=== PATIENT | female | born 1975 | race Caucasian/White ===

== ENCOUNTER → 2017-05-19 | Outpatient (CLI) | payer OTHER ==
--- NOTE | 2017-05-20 10:49 | MM ---
Reason for exam: screening (asymptomatic). Last mammogram was performed 1 year and 3 months ago. History: Patient is nulliparous. Family history of breast cancer in maternal aunt at age 60. Benign excisional biopsy of the left breast, 2011. Benign excisional biopsy of the left breast, 2004. Took hormonal contraceptives for 5 years beginning at age 18. Physical Findings: A clinical breast exam by your physician is recommended on an annual basis and results should be correlated with mammographic findings. MG 3D Screening Mammo W/Cad Bilateral CC and MLO view(s) were taken. Prior study comparison: February 26, 2016, bilateral MG 3d screening mammo w/cad. February 19, 2015, right breast MG 3d work up w/cad RT. The breast tissue is heterogeneously dense. This may lower the sensitivity of mammography. No suspicious abnormality in the left breast. Despite stability of the right upper outer quadrant architectural distortion, work up is required as other high risk lesions such as underlying radial scar could be present. Ensure no history of right breast surgery. ASSESSMENT: Incomplete: need additional imaging evaluation, BI-RAD 0 RECOMMENDATION: Special view mammogram of the right breast. If lesion persists on supplemental views, image directed ultrasound is recommended. [facility] will attempt to contact patient to return for supplemental views and ultrasound if indicated.
== END | disposition home or self-care (01) ==
LOC: RADMAMWWP 07:09
PROVIDERS: ATTEND Obstetrics & Gynecology
DX: Z12.31 Encounter for screening mammogram for malignant neoplasm of breast (principal)
CPT/HCPCS: 77063; 77067

== ENCOUNTER → 2017-05-27 | Outpatient (CLI) | payer OTHER ==
--- NOTE | 2017-05-30 08:03 | MM ---
Reason for exam: additional evaluation requested from abnormal screening. Last mammogram was performed less than 1 month ago. History: Patient is nulliparous. Family history of breast cancer in maternal aunt at age 60. Benign excisional biopsy of the left breast, 2011. Benign excisional biopsy of the left breast, 2004. Took hormonal contraceptives for 5 years beginning at age 18. Physical Findings: Nurse Summary: 1 x 1cm nodule in the right breast at 11 o'clock (nurse ts). MG 3D Work Up W/Cad RT Spot compression CC, spot compression MLO, MLO, and ML view(s) were taken of the right breast. Prior study comparison: May 19, 2017, bilateral MG 3d screening mammo w/cad. February 26, 2016, bilateral MG 3d screening mammo w/cad. Spiculated density seen dating back to 2010. These results were verbally communicated with the patient and result sheet given to the patient on 05/27/17. ASSESSMENT: Incomplete: need additional imaging evaluation, BI-RAD 0 RECOMMENDATION: Ultrasound of the right breast.
--- NOTE | 2017-05-30 08:05 | USB ---
Reason for exam: additional evaluation requested from abnormal screening. History: Patient is nulliparous. Family history of breast cancer in maternal aunt at age 60. Benign excisional biopsy of the left breast, 2011. Benign excisional biopsy of the left breast, 2004. Took hormonal contraceptives for 5 years beginning at age 18. US Breast Workup Limited RT Right breast ultrasound demonstrates a 0.9 x 0.6 x 1.0cm hypoechoic lesion at 9 o'clock and a 0.7 x 0.4 x 0.6cm cystic lesion at 10 o'clock. These results were verbally communicated with the patient and result sheet given to the patient on 05/27/17. ASSESSMENT: Suspicious, BI-RAD 4 RECOMMENDATION: Ultrasound core biopsy of the right breast. Called Dr. Eaton with mammographic findings and has scheduled an appointment for the patient for 06/30/17 at 8:[address] Gomez. Biopsy scheduled for 06/06/17 at 2:00. PRELIMINARY REPORT CALLED AND FAXED TO DR. GOMEZ ON 05/30/17.
== END ==
LOC: RADMAMWWP 13:29
PROVIDERS: ATTEND Obstetrics & Gynecology
DX: R92.8 Other abnormal and inconclusive findings on diagnostic imaging of breast (principal)
CPT/HCPCS: 77065; 76642; G0279

== ENCOUNTER → 2017-06-06 | Day surgery (SDC) | payer OTHER ==
[2017-06-06 13:31] VITALS: RESP 16; TEMP 98; BMI 29.6
--- NOTE | 2017-06-06 14:57 | USB ---
EXAMINATION TYPE: US biopsy breast VAD RT, MG diagnostic mammo RT wo CAD DATE OF EXAM: 06/06/2017 CLINICAL HISTORY: R92.8 ABN Mammogram. TECHNIQUE: Ultrasound guided core biopsy of right 9:00 breast. COMPARISON: 05/27/2017 ultrasound and mammography FINDINGS: The procedure of ultrasound guided core biopsy was explained to the patient. Benefits, alternatives, and risks were discussed. An informed consent was then obtained. The patient was placed in supine positioning for imaging and for the procedure. The overlying skin was prepped and draped in usual sterile fashion. Lidocaine buffered with bicarbonate was used as anesthetic into the skin and subcutaneous tissue up to area of concern in the right 9:00 breast. A jose was made with surgical scalpel. Under ultrasound guidance, a 12-gauge vacuum assisted biopsy gun device was used to obtain 5 core samples. Following this, a biopsy clip was left in lesion. There is evidence of clip migration. If biopsy results are benign or negative I do recommend needle localization with open biopsy. The patient tolerated the procedure well without any immediate complication. The patient was kept in the radiology department for short stay after the procedure and then discharged home in stable condition. IMPRESSION: Successful, uncomplicated ultrasound guided core biopsy of area of concern in the right 9:00 breast, full pathology results to follow. There is evidence of clip migration. If biopsy results are benign or negative I do recommend needle localization with open biopsy. Pathology Results: Benign BREAST, RIGHT, CORE BIOPSY: FIBROCYSTIC CHANGES INCLUDING SCLEROSING ADENOSIS WITH RARE MICROCALCIFICATIONS, FIBROSIS AND CYSTS. Recommendation Follow up ultrasound of the right breast in 6 months. ADITI
[2017-06-06 15:40] VITALS: BP 109/72; PULSE 66
== END ==
LOC: RADUSWWP 13:08
PROVIDERS: ATTEND Surgery
DX: N60.21 Fibroadenosis of right breast (principal); R92.0 Mammographic microcalcification found on diagnostic imaging of breast; N60.31 Fibrosclerosis of right breast
CPT/HCPCS: 77065; 19083; A4648; J2001; 88305

== ENCOUNTER 2017-07-01 06:43 | Day surgery (SDC) | payer OTHER ==
[2017-06-28 14:00] VITALS: BMI 30.4
[~2017-07-01 06:43] MED LIST: DEXAMETHASONE SOD PHOSPHATE 10 MG/ML 1 ML VIAL IV ONE; HEPARIN SODIUM,PORCINE 5,000 UNIT/ML 1 ML VIAL SQ ONE; LACTATED RINGERS 1,000 ML IV SCH; LIDOCAINE 1% 20 ML VIAL (10MG/ML) FOR IV START INTRADERMA PRN; MIDAZOLAM 2 MG/2 ML VIAL IV PRN; Pre Op ABX Message 1 EACH MISC MISCELLANE ONE; SCOPOLAMINE 1.5MG/72HR PATCH TRANSDERM ONE; fentaNYL (PF) 50 MCG/ML 2 ML AMP IV PRN
[2017-07-01 07:21] LABS: Glucose,Whole Blood 87 mg/dL (75-99)
[2017-07-01] MEDS ORDERED: ALPRAZolam 0.5 MG TAB PO ONE (07:23)
[2017-07-01] MEDS ORDERED: LIDOCAINE 1% INJ 10MG/ML (20 ML MDV) SQ ONE (08:14)
[2017-07-01] MEDS ORDERED: SODIUM BICARB 4% 5 ML VIAL (0.48 MEQ/ML) MISCELLANE ONE (08:14)
[2017-07-01] MEDS ORDERED: BUPIVACAINE (PF) 0.25% 30 ML VIAL SQ ONE (09:12)
[2017-07-01] MEDS ORDERED: ONDANSETRON ODT 4 MG TAB PO ONE (09:15)
[2017-07-01] MEDS ORDERED: fentaNYL (PF) 50 MCG/ML 2 ML AMP ONE (09:17)
[2017-07-01] MEDS ORDERED: PROPOFOL 10 MG/ML 20 ML VIAL IV ONE (09:17)
[2017-07-01] MEDS ORDERED: MIDAZOLAM 2 MG/2 ML VIAL ONE (09:17)
[2017-07-01] MEDS ORDERED: LIDOCAINE 1% INJ 10MG/ML (20 ML MDV) ONE (09:17)
[2017-07-01] MEDS ORDERED: traMADol 50 MG TAB PO PRN (10:04)
[2017-07-01] MEDS ORDERED: NALOXONE 0.4 MG/ML 1 ML VIAL IV PRN (10:04)
--- NOTE | 2017-07-01 10:07 | P.OP ---
Date of Procedure: 07/01/17 Procedure(s) Performed: PREOPERATIVE DIAGNOSIS: Abnormal right mammogram POSTOPERATIVE DIAGNOSIS: Same PROCEDURE: Right Breast wire localization biopsy SURGEON: Kathy EBL: Minimal ANESTHESIA: Sedation plus local COMPLICATIONS: None OPERATIVE PROCEDURE: Patient was placed on the operating room table in the supine position. The patient's breast was prepped and draped in usual sterile fashion. A curvilinear incision was made adjacent to the area areola. The subcutaneous tissues were dissected until we met up with the wire. I followed the wire down into the breast tissue. The breast tissue around the tip of the wire was fully excised using electrocautery. An additional small piece was taken just beyond the tip of the wire. The specimen was sent for specimen radiogram. The abnormality was present within the specimen. The subcutaneous tissues were inspected. No bleeding was seen. The subcutaneous tissues were closed using 3-0 Vicryl sutures. The skin was closed using a running 4-0 Monocryl stitch. Steri-Strips and sterile dressings were applied. DISPOSITION: Stable to recovery room
[2017-07-01 10:29] VITALS: TEMP 97
[2017-07-01] MEDS ORDERED: LACTATED RINGERS 1,000 ML IV ONE (10:39)
--- NOTE | 2017-07-01 11:18 | MM ---
EXAMINATION TYPE: MG pre op needle loc RT, MG surgical specimen RT DATE OF EXAM: 07/01/2017 9:07 AM COMPARISON: 06/06/2017 HISTORY: Recent ultrasound biopsy right breast with clip migration noted. Recommended excision of a site of distortion. Informed consent was obtained and all the patient's questions were answered. The density in question was localized mammographically. The standard sterile technique was utilized, as well as appropriate local anesthesia with 1% Lidocaine and bicarbonate. Localization needle followed by placement of a guidewire was performed under mammographic guidance. Verification images demonstrate appropriate deployment of the guidewire. The patient tolerated the procedure well and left the department in stable condition. Specimen radiograph demonstrates the density and guidewire to reside within the specimen. IMPRESSION: Successful needle localization and open biopsy right breast with pathology results pending . Pathology Results: High Risk RIGHT BREAST NEEDLE LOCALIZATION LUMPECTOMY: FOCAL ATYPICAL DUCTAL HYPERPLASIA. FIBROCYSTIC CHANGES WITH USUAL TYPE DUCT HYPERPLASIA, SCLEROSING ADENOSIS. Recommendation Follow up mammogram of the right breast in 6 months. ADITI
[2017-07-01 12:32] VITALS: BP 118/75; PULSE 68; RESP 16
== END 2017-07-01 12:45 | disposition home or self-care (01) ==
LOC: OR 06:43
PROVIDERS: ATTEND Surgery
DX: N60.91 Unspecified benign mammary dysplasia of right breast (principal); N60.11 Diffuse cystic mastopathy of right breast; N60.21 Fibroadenosis of right breast; Z80.3 Family history of malignant neoplasm of breast; K21.9 Gastro-esophageal reflux disease without esophagitis; F32.9 Major depressive disorder, single episode, unspecified; Z88.5 Allergy status to narcotic agent; Z79.899 Other long term (current) drug therapy; Z79.3 Long term (current) use of hormonal contraceptives
CPT/HCPCS: 81025; 88342; 88307; 76098; 19281; 19125; J2250; J1644; J1100; J2001; J3010; J2704

== ENCOUNTER → 2017-11-21 | Outpatient (CLI) | payer OTHER ==
--- NOTE | 2017-11-21 09:53 | MM ---
Reason for exam: follow-up at short interval from prior study. Last mammogram was performed 5 months ago. History: Patient has history of high-risk lesion on a previous biopsy at age 41 and is nulliparous. Family history of breast cancer in maternal aunt at age 60. High risk MG pre op needle loc RT of the right breast, July 01, 2017. Benign US biopsy breast VAD RT of the right breast, June 06, 2017. Benign excisional biopsy of the left breast, 2011. Benign excisional biopsy of the left breast, 2004. Took hormonal contraceptives for 5 years beginning at age 18. Physical Findings: Nurse did not find any significant physical abnormalities on exam. MG 3D Diag Mammo W/Cad RT CC and MLO view(s) were taken of the right breast. Prior study comparison: June 06, 2017, right breast MG diagnostic mammo RT wo CAD. May 27, 2017, right breast MG 3d work up w/cad RT. The breast tissue is heterogeneously dense. This may lower the sensitivity of mammography. Finding: There is a more prominent architectural distortion in the upper outer quadrant of the right breast consistent with known distortion and new distortion relates to internal excision. Previous mammotome biopsy in the right breast. There is no dominant lesion. These results were verbally communicated with the patient and result sheet given to the patient on 11/21/17. ASSESSMENT: Probably benign, BI-RAD 3 RECOMMENDATION: Follow-up diagnostic mammogram of both breasts in 6 months. Back on schedule.
== END | disposition home or self-care (01) ==
LOC: RADMAMWWP 08:43
PROVIDERS: ATTEND Surgery
DX: R92.8 Other abnormal and inconclusive findings on diagnostic imaging of breast (principal)
CPT/HCPCS: 77061; 77065

== ENCOUNTER 2018-07-22 10:29 | Inpatient (IN) | payer BC ==
[2018-07-22 11:02] LABS: Basophils % (A) 0 %; Eosinophils # (A) 0.2 k/uL (0-0.7); Eosinophils % (A) 3 %; HCT 38.8 % (34.0-46.0); HGB 13.3 gm/dL (11.4-16.0); Lymphocytes # (A) 1.8 k/uL (1.0-4.8); Lymphocytes % (A) 23 %; MCH 30.5 pg (25.0-35.0); MCHC 34.4 g/dL (31.0-37.0); MCV 88.8 fL (80.0-100.0); Mean Platelet Volume 6.5; Monocytes # (A) 0.3 k/uL (0-1.0); Monocytes % (A) 4 %; Neutrophils # (A) 5.3 k/uL (1.3-7.7); Neutrophils % (A) 68 %; Platelet Count 320 k/uL (150-450); RBC 4.37 m/uL (3.80-5.40); WBC 7.7 k/uL (3.8-10.6)
--- NOTE | 2018-07-22 11:02 | ED ---
Neuro HPI - General Chief Complaint: Neuro Symptoms/Deficit Stated Complaint: VISUAL DISTURBANCE, LISTING TO RIGHT Time Seen by Provider: 07/22/18 10:38 Source: patient Mode of arrival: ambulatory Limitations: no limitations - History of Present Illness Is the patient presenting with stroke symptoms?: Yes Last Known Well Date: 07/22/18 Last Known Well Time: 08:59 Onset/Timin -: hour(s) Initial Comments: Radha is a previously healthy 43-year-old female who presents to the emergency department today for evaluation of acute onset of double vision, gait instability and facial droop. Patient reports that approximately an hour and a half prior to arrival she developed double vision which she describes as seeing one image on top of the other. Double vision results if she keeps one eye closed. Patient also feels that she's having gait instability, she reports feeling on Tuesday on her feet and repeatedly falls to the right. Patient denies any headache, nausea, vomiting. The symptoms began suddenly and unprovoked. They've been persistent with no relieving factors. Patient has no history of hypertension, she was recently tested for cholesterol and was told she had mildly elevated lipids, no history of liver disease. - Related Data Home Medications: Home Medications Medication Instructions Recorded Confirmed Escitalopram [Lexapro] 20 mg PO DAILY 05/30/17 07/22/18 Fluticasone Nasal [place] [Flonase 1 spray EA NOSTRIL DAILY 07/22/18 07/22/18 Nasal [place]] Britt 24 Fe 1mg-20mcg Tablet 1 tab PO DAILY 07/22/18 07/22/18 Montelukast Sodium [Singulair] 10 mg PO DAILY 07/22/18 07/22/18 metFORMIN HCL [Glucophage] 500 mg PO BID 07/22/18 07/22/18 Allergies/Adverse Reactions: Allergies Allergy/AdvReac Type Severity Reaction Status Date / Time codeine Allergy Severe Anaphylaxis-DIFFICULTY Verified 07/22/18 10:59 BREATHING, ABD PAIN Review of Systems ROS Statement: Those systems with pertinent positive or pertinent negative responses have been documented in the HPI. ROS Other: All systems not noted in ROS Statement are negative. General Exam - General Exam Comments Initial Comments: GENERAL: Patient is well-developed and well-nourished. Patient is nontoxic and well-hydrated HENT: Normocephalic, Atraumatic. Neck is soft and supple. No significant lymphadenopathy is noted. Oropharynx is clear. Moist mucous membranes. Neck has full range of motion without eliciting any pain. EYES: The sclera were anicteric and conjunctiva were pink and moist. pupils were equal round and reactive to light. Decreased ability to elevate eyes to look superiorly bilaterally Eyelids were unremarkable. PULMONARY: Unlabored respirations Good breath sounds bilaterally No audible rales rhonchi or wheezing was noted CARDIOVASCULAR: There is a regular rate and rhythm without any murmurs gallops or rubs. ABDOMEN: Soft and nontender with normal bowel sounds. SKIN: Skin is clear with no lesions or rashes and otherwise unremarkable. NEUROLOGIC: Patient is alert and oriented x3. Cranial nerves II through XII are grossly intact. There may be mild right sided mouth droop, however difficult to assess because patient is holding left eye closed causing asymmetry of the face Motor and sensory are also intact. Normal speech, volume and content. Symmetrical smile. MUSCULOSKELETAL: Normal extremities with adequate strength and full range of motion. No lower extremity swelling or edema. No calf tenderness. LYMPHATICS: No significant lymphadenopathy is noted PSYCHIATRIC: Normal psychiatric evaluation Limitations: no limitations Stroke MDM - Lab Data Result diagrams: 07/22/18 10:17 07/22/18 10:17 Lab Results 07/22/18 07/22/18 07/22/18 Range/Units 10:17 10:17 10:17 WBC 7.7 (3.8-10.6) k/uL RBC 4.37 (3.80-5.40) m/uL Hgb 13.3 (11.4-16.0) gm/dL Hct 38.8 (34.0-46.0) % MCV 88.8 (80.0-100.0) fL MCH 30.5 (25.0-35.0) pg MCHC 34.4 (31.0-37.0) g/dL RDW 13.0 (11.5-15.5) % Plt Count 320 (150-450) k/uL Neutrophils % 68 % Lymphocytes % 23 % Monocytes % 4 % Eosinophils % 3 % Basophils % 0 % Neutrophils # 5.3 (1.3-7.7) k/uL Lymphocytes # 1.8 (1.0-4.8) k/uL Monocytes # 0.3 (0-1.0) k/uL Eosinophils # 0.2 (0-0.7) k/uL Basophils # 0.0 (0-0.2) k/uL PT 9.7 (9.0-12.0) sec INR 0.9 (<1.2) APTT 23.9 (22.0-30.0) sec Sodium 139 (137-145) mmol/L Potassium 4.2 (3.5-5.1) mmol/L Chloride 107 (98-107) mmol/L Carbon Dioxide 24 (22-30) mmol/L Anion Gap 8 mmol/L BUN 10 (7-17) mg/dL Creatinine 0.73 (0.52-1.04) mg/dL Est GFR (CKD-EPI)AfAm >90 (>60 ml/min/1.73 sqM) Est GFR (CKD-EPI)NonAf >90 (>60 ml/min/1.73 sqM) Glucose 98 (74-99) mg/dL POC Glucose (mg/dL) (75-99) mg/dL POC Glu Editorial Writer ID Calcium 9.9 (8.4-10.2) mg/dL Total Bilirubin 0.4 (0.2-1.3) mg/dL AST 14 (14-36) U/L ALT 11 (9-52) U/L Alkaline Phosphatase 89 (38-126) U/L Troponin I (0.000-0.034) ng/mL Total Protein 7.1 (6.3-8.2) g/dL Albumin 4.0 (3.5-5.0) g/dL 07/22/18 07/22/18 Range/Units 10:17 11:12 WBC (3.8-10.6) k/uL RBC (3.80-5.40) m/uL Hgb (11.4-16.0) gm/dL Hct (34.0-46.0) % MCV (80.0-100.0) fL MCH (25.0-35.0) pg MCHC (31.0-37.0) g/dL RDW (11.5-15.5) % Plt Count (150-450) k/uL Neutrophils % % Lymphocytes % % Monocytes % % Eosinophils % % Basophils % % Neutrophils # (1.3-7.7) k/uL Lymphocytes # (1.0-4.8) k/uL Monocytes # (0-1.0) k/uL Eosinophils # (0-0.7) k/uL Basophils # (0-0.2) k/uL PT (9.0-12.0) sec INR (<1.2) APTT (22.0-30.0) sec Sodium (137-145) mmol/L Potassium (3.5-5.1) mmol/L Chloride (98-107) mmol/L Carbon Dioxide (22-30) mmol/L Anion Gap mmol/L BUN (7-17) mg/dL Creatinine (0.52-1.04) mg/dL Est GFR (CKD-EPI)AfAm (>60 ml/min/1.73 sqM) Est GFR (CKD-EPI)NonAf (>60 ml/min/1.73 sqM) Glucose (74-99) mg/dL POC Glucose (mg/dL) 94 (75-99) mg/dL POC Glu Editorial Writer ID Sherry Cervantes Calcium (8.4-10.2) mg/dL Total Bilirubin (0.2-1.3) mg/dL AST (14-36) U/L ALT (9-52) U/L Alkaline Phosphatase (38-126) U/L Troponin I <0.012 (0.000-0.034) ng/mL Total Protein (6.3-8.2) g/dL Albumin (3.5-5.0) g/dL - NIH Stroke Scale 1a. Level of Consciousness: (0) alert 1b. LOC Questions: (0) answers correctly 1c. LOC Commands: (0) performs tasks correctly 2. Best Gaze: (1) partial gaze palsy 3. Visual: (0) no visual loss 4. Facial Palsy: (1) minor paralysis 5a. Motor Arm Left: (0) no drift 5b. Motor Arm Right: (0) no drift 6a. Motor Leg Left: (0) no drift 6b. Motor Leg Right: (0) no drift 7. Limb Ataxia: (0) absent 8. Sensory: (0) normal 9. Best Language: (0) no aphasia 10. Dysarthria: (0) normal 11. Extinction/Inattention: (0) no abnormality - Medical Decision Making Patient was seen and evaluated immediately upon arrival to the emergency department 43-year-old female no significant past medical history with acute onset of double vision and gait instability concerning for brain stem stroke CODE STROKE was activated CT of the head with no acute findings Patient care was discussed with neuro interventionalists Dr. Rachelle jean baptiste who recommended aspirin, admission, MRI and supportive care Labs with no abnormalities Patient sleeping comfortably in the exam room. Patient care was discussed with of the [facility] hospitalist group who is covering for Dr. León who admits for Dr. Fritz. - EKG Data -: EKG Interpreted by Ar EKG shows normal: sinus rhythm Rate: normal EKG was obtained at 11:38 AM, rate is 72 rhythm is sinus is normal axis her normal intervals, NC 160, QRS 74, QTC 34, QTC 420 there are no acute ST elevations or depressions no evidence of acute ischemia or infarction or arrhythmia. 07/22/18 12:04 Past Medical History Past Medical History: GERD/Reflux Additional Past Medical History / Comment(s): abnormal mammogram. History of Any Multi-Drug Resistant Organisms: None Reported Additional Past Surgical History / Comment(s): 2011 left breast biopsy, benign. Left Axilla biopsy 2004 benign. bilat Lasik eye surgery 2010, Right Breast Bx 06/16/17. Past Anesthesia/Blood Transfusion Reactions: No Reported Reaction Past Psychological History: No Psychological Hx Reported Smoking Status: Never smoker Past Alcohol Use History: Rare Past Drug Use History: None Reported - Past Family History Father Family Medical History: Deep Vein Thrombosis (DVT), Pulmonary Embolus Course Vital Signs 07/22/18 07/22/18 07/22/18 10:32 11:00 11:15 Temperature 97.9 F Pulse Rate 93 70 73 Respiratory 16 14 14 Rate Blood Pressure 136/90 142/94 128/86 O2 Sat by Pulse 97 98 99 Oximetry 07/22/18 07/22/18 11:30 11:45 Temperature Pulse Rate 71 67 Respiratory 16 16 Rate Blood Pressure 123/85 125/82 O2 Sat by Pulse 99 98 Oximetry Critical Care Time Critical Care Time: Yes Total Critical Care Time: 30 Disposition Clinical Impression: Cerebrovascular accident, Double vision with both eyes open, Gait instability Disposition: ADMITTED IP TO THIS [facility] Condition: Stable Is patient prescribed a controlled substance at d/c from ED?: No Referrals: Neri Fritz MD [Primary Care Provider] - 1-2 days
[2018-07-22] MEDS ORDERED: ASPIRIN 81 MG PO STA (11:06)
[2018-07-22 11:12] LABS: ALT 11 U/L (9-52); AST 14 U/L (14-36); Alkaline Phosphatase 89 U/L (38-126); Anion Gap 8 mmol/L; Blood Urea Nitrogen 10 mg/dL (7-17); Calcium 9.9 mg/dL (8.4-10.2); Carbon Dioxide 24 mmol/L (22-30); Chloride 107 mmol/L (98-107); Glucose 98 mg/dL (74-99); Potassium 4.2 mmol/L (3.5-5.1); Sodium 139 mmol/L (137-145); Total Bilirubin 0.4 mg/dL (0.2-1.3); Total Protein 7.1 g/dL (6.3-8.2)
[2018-07-22 11:13] LABS: INR 0.9 (<1.2); Partial Thromboplastin Time 23.9 sec (22.0-30.0); Prothrombin Time 9.7 sec (9.0-12.0)
--- NOTE | 2018-07-22 11:15 | CT ---
EXAMINATION TYPE: CT brain wo con for TPA DATE OF EXAM: 07/22/2018 COMPARISON: None INDICATION: Visiual disturbance, listing to right DLP: 1172.8 mGycm, Automated exposure control for dose reduction was used. CONTRAST: None CT of the brain is performed utilizing 3 mm thick sections through the posterior fossa and 3 mm thick sections through the remaining calvarium. Study is performed within 24 hours of arrival to the hosp [place]. No abnormal hyperdensity is present to suggest an acute intracranial hemorrhage. No mass lesion is evident. No acute infarcts are evident. Ventricles and sulci are appropriate for the patient age. Paranasal sinuses and mastoid air cells within the [id number] are clear. IMPRESSIONS: 1. No acute intracranial process. If symptoms persists, MRI could be utilized.
[2018-07-22 11:17] LABS: Glucose,Whole Blood 94 mg/dL (75-99)
--- NOTE | 2018-07-22 12:12 | CT ---
EXAMINATION TYPE: CODE STROKE: CTA head neck DATE OF EXAM: 07/22/2018 HISTORY: Stroke like symptoms right facial droop with headache and blurred vision COMPARISON: None CT DLP: 527 mGycm. Automated Exposure Control for Dose Reduction was Utilized. TECHNIQUE: CTA scan of the neck is performed with IV Contrast, patient injected with 50 mL of Isovue 370, axial images are obtained, coronal and sagittal reformatted images are reviewed. Three-D recons tructed images are created on an independent workstation and reviewed. FINDINGS: Carotid/Vascular Structures: There is a three-vessel arch. Vertebral arteries are codominant. No sign ificant stenosis of the common carotid artery, internal or external carotid artery origins on the lef t is evident. The right common carotid artery and internal and external carotid artery origins appear normal. Distal internal carotid arteries are patent to the level of the skull base. [place]: Vertebral basilar system is normal. Posterior cerebral vasculature is normal. Poste rior right communicating artery appears to be patent. There may be a posterior left communicating art vladimir present. Anterior communicating artery is not identified. The internal carotid arteries bifurcat e normally into A1 and M1 segments. The A2 segments appear normal. Middle cerebral artery branches ar e normal. No suspicious abrupt cut off is evident. Other: Portion of the thyroid visualized is normal. Vocal cord level appear symmetrical. Lung apices are clear. IMPRESSION: 1. No suspicious carotid artery stenosis. 2. Normal [place]
[2018-07-22] MEDS ORDERED: NALOXONE 0.4 MG/ML 1 ML VIAL IV PRN (12:43)
[2018-07-22 13:25] LABS: Appearance,Urine Clear (Clear); Bilirubin,Urine Negative (Negative); Blood,Urine Small (Negative); Color,Urine Light Yellow; Glucose,Urine (UA) Negative (Negative); Ketones,Urine Negative (Negative); Leukocyte Esterase,Urine Negative (Negative); Mucus,Urine Rare /hpf; Nitrite,Urine Negative (Negative); PH, Urine 5.5 (5.0-8.0); Protein,Urine Negative (Negative); RBC,Urine 2 /hpf (0-5); Squamous Epithelial Cell,Urine 4 /hpf (0-4); Urobilinogen,Urine <2.0 mg/dL (<2.0); WBC,Urine <1 /hpf (0-5)
[2018-07-22 13:30] LABS: Specific Gravity,Urine >1.050 (1.001-1.035)
[2018-07-22 14:28] LABS: Amphetamine Screen,Urine Not Detected (NotDetected); Barbiturate Screen,Urine Not Detected (NotDetected); Benzodiazepines Screen,Urine Not Detected (NotDetected); Cocaine Screen,Urine Not Detected (NotDetected); Methadone Screen, Urine Not Detected (NotDetected); Opiate Screen,Urine Not Detected (NotDetected); Oxycodone Screen, Urine Not Detected (NotDetected); Phencyclidine Screen,Urine Not Detected (NotDetected); Tricyclic Antidepressant,Urine Not Detected (NotDetected); Urn Cannabinoid Scrn Not Detected (NotDetected)
[2018-07-22 16:10] VITALS: RESP 20; TEMP 97.8; BMI 31.9
--- NOTE | 2018-07-22 16:42 | P.CNNES ---
History of Present Illness Consult date: 07/22/18 Reason for Consult: CVA History of Present Illness: Patient is a 43-year-old right-handed female, who woke up this morning at 9 AM with difficulty focusing, diplopia, right facial droop, gait imbalance and tendency to fall to the right. There was no numbness tingling or focal weakness of the extremities. No nausea vomiting or vertigo. No slurred speech significant headache. Patient states that she went to bed last night at 11 PM in usual state of health. She did woke up one time in the middle of the night and was fine, but then she finally woke up at 9 AM had all the symptoms. Patient denies any recent head trauma. Patient denies history of hypertension, diabetes, tobacco use. Denies any family history of multiple sclerosis or cerebral aneurysms. Patient does not take any antiplatelet medications. She does take control pills for the last 2 years. Patient underwent computed tomography scan of the head, which was normal. CTA of head and neck showed no suspicious carotid artery stenosis. Normal [place]. EKG showed normal sinus rhythm. Stroke code was initiated in the ER, and ED staff discussed with Dr. Bush. Patient was not a candidate for TPA or any intervention. Patient was given aspirin and MRI was recommended. Patient denies any changes in her condition since yesterday. Patient denies any history of head trauma in the last 6 months to a year. She did have couple of head injuries in the past, when she stood up and hit her head on the ceiling, however was several years ago. Patient underwent CBC, CMP, UA, urine toxicology all came back negative. PT/PTT normal. Review of Systems As per history of present illness. All other review of systems completely unremarkable. Patient did have mild headache, but was very minor. Now it's gone. Past Medical History Past Medical History: GERD/Reflux Additional Past Medical History / Comment(s): abnormal mammogram. History of Any Multi-Drug Resistant Organisms: None Reported Additional Past Surgical History / Comment(s): 2011 left breast biopsy, benign. Left Axilla biopsy 2005 benign. bilat Lasik eye surgery 2010, Right Breast Bx 06/16/17. Past Anesthesia/Blood Transfusion Reactions: No Reported Reaction Past Psychological History: No Psychological Hx Reported Additional Psychological History / Comment(s): takes The Mill[employer] for "mood" Smoking Status: Never smoker Past Alcohol Use History: Rare Past Drug Use History: None Reported - Past Family History Father Family Medical History: Deep Vein Thrombosis (DVT), Pulmonary Embolus Medications and Allergies Home Medications Medication Instructions Recorded Confirmed Type Escitalopram [Lexapro] 20 mg PO DAILY 05/30/17 07/22/18 History Fluticasone Nasal [place] [Flonase 1 spray EA NOSTRIL DAILY 07/22/18 07/22/18 History Nasal [place]] Britt 24 Fe 1mg-20mcg Tablet 1 tab PO DAILY 07/22/18 07/22/18 History Montelukast Sodium [Singulair] 10 mg PO DAILY 07/22/18 07/22/18 History metFORMIN HCL [Glucophage] 500 mg PO BID 07/22/18 07/22/18 History Allergies Allergy/AdvReac Type Severity Reaction Status Date / Time codeine Allergy Severe Anaphylaxis-DIFFICULTY Verified 07/22/18 10:59 BREATHING, ABD PAIN Physical Examination - Vital Signs Vital Signs: Vital Signs Temp Pulse Pulse Resp BP BP Pulse Ox 07/22/18 14:40 97.8 F 76 20 137/88 95 07/22/18 14:00 70 16 117/76 95 07/22/18 12:45 66 18 121/79 98 07/22/18 12:30 67 18 115/77 99 07/22/18 12:15 67 18 114/77 99 07/22/18 12:00 67 16 118/81 98 07/22/18 11:45 67 16 125/82 98 07/22/18 11:30 71 16 123/85 99 07/22/18 11:15 73 14 128/86 99 07/22/18 11:00 70 14 142/94 98 07/22/18 10:32 97.9 F 93 16 136/90 97 Intake and Output 07/22/18 07/22/18 07/22/18 06:59 14:59 22:59 Intake Total 1000 Balance 1000 Intake: Amount of Fluid Infused ( 1000 ml) Other: # Voids 0 Weight 95.254 kg On examination patient is a young-looking middle aged female, in no distress. Her mental status, speech and language functions are normal. On cranial nerve examination, the right pupil is slightly larger than the left, but both are round and reacting to light. Visual mroa are full on confrontation. Extraocular muscles revealed right ophthalmoplegia, primarily involving the third cranial nerve, with restricted movement in the lateral, medial upper and lower gaze. Her upgaze is also affected, some disconjugate primary gaze. Patient has severe diplopia. Patient has right facial asymmetry, central type. Tongue protrudes to the midline. Palatal elevation normal. Muscle strength testing patient has mild right pronation no drift. The strength is completely normal in the arms and legs. Reflexes are 2+ and plantars downgoing. Sensory touch is equal. Patient has very mild dysmetria for [id number] on the right. Not clearly any obvious ataxia in the lower extremities. Tone and bulk of muscles normal. Gait deferred. Results - Laboratory Findings CBC and BMP: 07/22/18 10:17 07/22/18 10:17 Abnormal Lab Findings: Abnormal Labs 07/22/18 13:00 Ur Specific [place] >1.050 H Urine Blood Small H Urine Mucus Rare H Assessment and Plan Assessment: * Acute onset of diplopia, opthalmoparesis (right third nerve palsy) right facial weakness, ataxia and gait imbalance. Rule out cerebrovascular accident versus demyelinating disease like MS. Plan: Patient needs stat MRI of the brain with and without contrast to rule out CVA versus demyelinating disease. Patient also needs MRV of the brain to rule out venous sinus thrombosis, as patient is on control pills, although less likely as patient does not have headache at this time. If the MRI cannot be performed in this hospital (lack of MRI availability on the weekend), then would consider transfer to another facility.
--- NOTE | 2018-07-22 17:29 | P.HPIM ---
History of Present Illness 43-year-old the present female came in with compensative diplopia right-sided facial droop and gait imbalance and tendency to fall to the warts) started today 9M. Telemetry medicine droop or take neurological evaluation was done in the ER CT angios done they recommended MRI of workup and patient was subsequently admitted to the floor. Patient was evaluated by neurologist unfortunately do not have MRI available over the weekend and neurologist is recommending transfer to higher level facility to obtain an MRI and MRA. Patient denied any fever chills nausea vomiting. Patient never had any stroke in the past. Denied any history of coronary artery disease. Patient is diabetic no other major medical problems. Review of Systems REVIEW OF SYSTEMS: CONSTITUTIONAL: No fever, no malaise, no fatigue. HEENT: No recent visual problems or hearing problems. Denied any sore throat. CARDIOVASCULAR: No chest pain, orthopnea, PND, no palpitations, no syncope. PULMONARY: No shortness of breath, no cough, no hemoptysis. GASTROINTESTINAL: No diarrhea, no nausea, no vomiting, no abdominal pain. NEUROLOGICAL: No headaches, , no numbness. HEMATOLOGICAL: Denies any bleeding or petechiae. GENITOURINARY: Denies any burning micturition, frequency, or urgency. MUSCULOSKELETAL/RHEUMATOLOGICAL: Denies any joint pain, swelling, or any muscle pain. ENDOCRINE: Denies any polyuria or polydipsia. The rest of the 14-point review of systems is negative. Past Medical History Past Medical History: GERD/Reflux Additional Past Medical History / Comment(s): abnormal mammogram. History of Any Multi-Drug Resistant Organisms: None Reported Additional Past Surgical History / Comment(s): 2011 left breast biopsy, benign. Left Axilla biopsy 2005 benign. bilat Lasik eye surgery 2010, Right Breast Bx 06/16/17. Past Anesthesia/Blood Transfusion Reactions: No Reported Reaction Past Psychological History: No Psychological Hx Reported Additional Psychological History / Comment(s): takes lexapro for "mood" Smoking Status: Never smoker Past Alcohol Use History: Rare Past Drug Use History: None Reported - Past Family History Father Family Medical History: Deep Vein Thrombosis (DVT), Pulmonary Embolus Medications and Allergies Home Medications Medication Instructions Recorded Confirmed Type Escitalopram [Lexapro] 20 mg PO DAILY 05/30/17 07/22/18 History Fluticasone Nasal [place] [Flonase 1 spray EA NOSTRIL DAILY 07/22/18 07/22/18 History Nasal [place]] Britt 24 Fe 1mg-20mcg Tablet 1 tab PO DAILY 07/22/18 07/22/18 History Montelukast Sodium [Singulair] 10 mg PO DAILY 07/22/18 07/22/18 History metFORMIN HCL [Glucophage] 500 mg PO BID 07/22/18 07/22/18 History Allergies Allergy/AdvReac Type Severity Reaction Status Date / Time codeine Allergy Severe Anaphylaxis-DIFFICULTY Verified 07/22/18 10:59 BREATHING, ABD PAIN Physical Exam Vitals: Vital Signs Temp Pulse Pulse Resp BP BP Pulse Ox 07/22/18 14:40 97.8 F 76 20 137/88 95 07/22/18 14:00 70 16 117/76 95 07/22/18 12:45 66 18 121/79 98 07/22/18 12:30 67 18 115/77 99 07/22/18 12:15 67 18 114/77 99 07/22/18 12:00 67 16 118/81 98 07/22/18 11:45 67 16 125/82 98 07/22/18 11:30 71 16 123/85 99 07/22/18 11:15 73 14 128/86 99 07/22/18 11:00 70 14 142/94 98 07/22/18 10:32 97.9 F 93 16 136/90 97 Intake and Output 07/22/18 07/22/18 07/22/18 06:59 14:59 22:59 Intake Total 1000 Balance 1000 Intake: Amount of Fluid Infused ( 1000 ml) Other: # Voids 0 Weight 95.254 kg PHYSICAL EXAMINATION: GENERAL: The patient is alert and oriented x3, not in any acute distress. Well developed, well nourished. HEENT: Pupils are round and equally reacting to light. EOMI. No scleral icterus. No conjunctival pallor. Normocephalic, atraumatic. No pharyngeal erythema. No thyromegaly. CARDIOVASCULAR: S1 and S2 present. No murmurs, rubs, or gallops. PULMONARY: Chest is clear to auscultation, no wheezing or crackles. ABDOMEN: Soft, nontender, nondistended, normoactive bowel sounds. No palpable organomegaly. MUSCULOSKELETAL: No joint swelling or deformity. EXTREMITIES: No cyanosis, clubbing, or pedal edema. NEUROLOGICAL: Extraocular muscle exam showed right-sided ophthalmoplegia primar kay[place] involving the third cranial nerve as well as probably fourth cranial now as well has severe diplopia with both eyes open. Strength is normal in all 4 limbs patient does have right-sided facial weakness appears to be UMN lesion SKIN: No rashes. Results CBC & Chem 7: 07/22/18 10:17 07/22/18 10:17 Labs: Abnormal Lab Results - Last 24 Hours (Table) 07/22/18 Range/Units 13:00 Ur Specific [place] >1.050 H (1.001-1.035) Urine Blood Small H (Negative) Urine Mucus Rare H (None) /hpf Thrombosis Risk Factor Assmnt - Choose All That Apply Any of the Below Risk Factors Present?: No Other Risk Factors: No Thrombosis Risk Factor Assessment Level: Very Low Risk Assessment and Plan Plan: Diplopia and facial droop: Patient to be evaluated for stroke involving the midbrain although demyelinating disease cannot be ruled out patient will need an MRI which is not available over the weekend because of which patient is being transferred to higher level facility. Patient was given aspirin and patient needed to be started on a statin. Will require an echocardiogram CT angios of the head and neck did not show any significant abnormality. -Type 2 diabetes mellitus: Probably metformin need to be held and she received contrast today patient probably can be on sliding scale insulin -Gastroesophageal reflux disease Patient is being transferred to higher level facility
[2018-07-22 18:39] VITALS: BP 124/82; PULSE 82
[2018-07-22 19:15] LABS: Cocaine Screen,Urine Not Detected (NotDetected); Phencyclidine Screen,Urine Not Detected (NotDetected); Urn Cannabinoid Scrn Not Detected (NotDetected)
[2018-07-22 19:16] LABS: Amphetamine Screen,Urine Not Detected (NotDetected); Barbiturate Screen,Urine Not Detected (NotDetected); Benzodiazepines Screen,Urine Not Detected (NotDetected); Methadone Screen, Urine Not Detected (NotDetected); Opiate Screen,Urine Not Detected (NotDetected); Oxycodone Screen, Urine Not Detected (NotDetected); Tricyclic Antidepressant,Urine Not Detected (NotDetected)
== END 2018-07-22 18:56 | disposition short-term general hospital (02) | DRG 65 ==
LOC: EC 10:29 → 3SCARD 12:43
PROVIDERS: ADMIT Internal Medicine; ATTEND Internal Medicine
DX: I63.9 Cerebral infarction, unspecified (principal); G37.9 Demyelinating disease of central nervous system, unspecified; H53.2 Diplopia; R29.810 Facial weakness; R26.9 Unspecified abnormalities of gait and mobility; R29.6 Repeated falls; K21.9 Gastro-esophageal reflux disease without esophagitis; E11.9 Type 2 diabetes mellitus without complications; H49.01 Third [oculomotor] nerve palsy, right eye; Z79.899 Other long term (current) drug therapy; Z79.84 Long term (current) use of oral hypoglycemic drugs; Z88.5 Allergy status to narcotic agent; Z79.51 Long term (current) use of inhaled steroids; Z84.89 Family history of other specified conditions
CPT/HCPCS: 36415; 70450; 70496; 70498; 80053; 80306; 81001; 84484; 85025; 85610; 85730; 93005; 99291

== ENCOUNTER → 2018-11-23 | Outpatient (CLI) | payer BC ==
--- NOTE | 2018-11-23 10:07 | MM ---
Reason for exam: follow-up at short interval from prior study. Last mammogram was performed 6 months ago. History: Patient has history of high-risk lesion on a previous biopsy at age 41 and is nulliparous. Family history of breast cancer in maternal aunt at age 60. High risk MG pre op needle loc RT of the right breast, July 01, 2017. Benign US biopsy breast VAD RT of the right breast, June 06, 2017. Benign excisional biopsy of the left breast, 2011. Benign excisional biopsy of the left breast, 2004. Taking hormonal contraceptives for 5 years beginning at age 18. Physical Findings: Nurse did not find any significant physical abnormalities on exam. MG 3D Diag Mammo W/Cad RT CC and MLO view(s) were taken of the right breast. Prior study comparison: May 22, 2018, bilateral MG 3d diag mammo w/cad PETER. November 21, 2017, right breast MG 3d diag mammo w/cad RT. The breast tissue is heterogeneously dense. This may lower the sensitivity of mammography. Benign appearing calcifications in the right breast. Right biopsy marker remains. Persistent distortion appears as post excisional change as initial distortion appears appropriately localized. These results were verbally communicated with the patient and result sheet given to the patient on 11/23/18. ASSESSMENT: Benign, BI-RAD 2 RECOMMENDATION: Breast MRI of both breasts. Follow-up diagnostic mammogram of both breasts in 6 months. Back on schedule for April 2019.
--- NOTE | 2018-11-23 10:11 | USB ---
Reason for exam: follow-up at short interval from prior study. History: Patient has history of high-risk lesion on a previous biopsy at age 41 and is nulliparous. Family history of breast cancer in maternal aunt at age 60. High risk MG pre op needle loc RT of the right breast, July 01, 2017. Benign US biopsy breast VAD RT of the right breast, June 06, 2017. Benign excisional biopsy of the left breast, 2011. Benign excisional biopsy of the left breast, 2004. Taking hormonal contraceptives for 5 years beginning at age 18. US Breast RT Right complete breast ultrasound includes all four quadrants, the retroareolar region and axilla. Finding demonstrates a 0.4 x 0.5 x 0.4cm oval, cluster, thick walled, cystic lesion at 1 o'clock, a 0.3 x 0.4 x 0.2cm oval, cystic lesion at 10 o'clock, a hypoechoic, avascular scar area at 10 o'clock smaller than prior, a 0.3 x 0.3 x 0.2cm oval, cystic lesion at 11 o'clock, duct ectasia at the posterior nipple and a 1.5 x 1.9 x 1.1cm oval lesion at axilla. These results were verbally communicated with the patient and result sheet given to the patient on 11/23/18. ASSESSMENT: Probably benign, BI-RAD 3 RECOMMENDATION: Breast MRI of both breasts. (regarding persistent right nipple discharge) Manage patient on a clinical basis. Ultrasound of the right breast in 6 months.
== END | disposition home or self-care (01) ==
LOC: RADMAMWWP 08:11
PROVIDERS: ATTEND Surgery
DX: R92.8 Other abnormal and inconclusive findings on diagnostic imaging of breast (principal)
CPT/HCPCS: 77061; 77065

== ENCOUNTER → 2018-12-27 | Outpatient (CLI) | payer BC ==
--- NOTE | 2019-01-01 13:16 | BMR ---
EXAMINATION TYPE: MR breast BILAT wo/w con DATE OF EXAM: 12/27/2018 COMPARISON: Right breast ultrasound dated 11/23/2018 and diagnostic right breast mammogram dated 2018. Bilateral diagnostic mammogram dated 05/22/2018 HISTORY: Abnormal mamm, hx bx rt breast, removal of ducts lt breast 10 yrs ago. Persistent right nipp le discharge. Personal history of benign excisional biopsy of the left breast in 2004 and 2012. High risk needle localization of the right breast in 2018. TECHNIQUE: A series of fat and water weighted images in the long and short axis views of both breasts are obtained in conjunction with dynamic contrast MRI with subtraction technique. The patient was i njected with 9 mL intravenous Gadavist gadolinium contrast. Three-dimensional and additional postpr ocessing imaging is created on independent workstation and reviewed during official interpretation of this study. FINDINGS: The breasts are composed of heterogenous fibroglandular tissue, which may obscure small masses. There is asymmetric size of the breasts, right larger than left. There is slightly asymmetric (right great er than left) moderate background parenchymal enhancement. Right: Corresponding to the sonographic finding to 11/23/2018 there are subcentimeter cysts at the 1:0 0 and 10:00 positions on the right and biopsy marker also noted at the 10:00 position on the right in the area of avascular scar on the prior ultrasound. Ductal ectasia is also seen. No suspicious mass or nodule mass enhancement. Specifically no periareolar ductal enhancement. Left: No suspicious mass nor nonmass enhancement. Scattered subcentimeter T2 hyperintense nonenhancin g cysts. Specifically no periareolar ductal enhancement. No suspicious axillary, intramammary, or internal mammary adenopathy bilaterally. IMPRESSION: 1. BI-RADS 2-benign findings. No MR evidence of malignancy. Annual screening mammography is recommend ed. 2. Clinical management of the bilateral breast nipple discharge (stated on some recent documentation submitted on other history forms). MRI pituitary mass protocol could be considered if not previously performed or duct exploration.
== END | disposition home or self-care (01) ==
LOC: RADMRIMAIN 13:56
PROVIDERS: ATTEND Surgery
DX: R92.8 Other abnormal and inconclusive findings on diagnostic imaging of breast (principal)
CPT/HCPCS: 77049; C8937; A9585

== ENCOUNTER → 2019-02-08 | Outpatient (CLI) | payer BC ==
[2019-02-08 12:02] LABS: Basophils % (A) 0 %; Eosinophils # (A) 0.1 k/uL (0-0.7); Eosinophils % (A) 1 %; HCT 43.1 % (34.0-46.0); HGB 14.2 gm/dL (11.4-16.0); Lymphocytes # (A) 2.1 k/uL (1.0-4.8); Lymphocytes % (A) 27 %; Monocytes # (A) 0.4 k/uL (0-1.0); Monocytes % (A) 5 %; Neutrophils % (A) 64 %; Platelet Count 348 k/uL (150-450); RBC 4.59 m/uL (3.80-5.40); RDW 12.7 % (11.5-15.5); WBC 7.7 k/uL (3.8-10.6)
== END | disposition home or self-care (01) ==
LOC: LABPAT 11:08
PROVIDERS: ATTEND Obstetrics & Gynecology
DX: Z01.812 Encounter for preprocedural laboratory examination (principal); Z01.818 Encounter for other preprocedural examination; I48.91 Unspecified atrial fibrillation; N88.2 Stricture and stenosis of cervix uteri; N92.0 Excessive and frequent menstruation with regular cycle
CPT/HCPCS: 36415; 85025; 93005

== ENCOUNTER 2019-02-27 07:48 | Day surgery (SDC) | payer BC ==
[2019-02-19 14:51] VITALS: BMI 32.3
[~2019-02-27 07:48] MED LIST changes: -HEPARIN SODIUM,PORCINE 5,000 UNIT/ML 1 ML VIAL SQ ONE; -MIDAZOLAM 2 MG/2 ML VIAL IV PRN; +ONDANSETRON 4 MG/2 ML VIAL IVP ONE; -SCOPOLAMINE 1.5MG/72HR PATCH TRANSDERM ONE
[2019-02-27] MEDS ORDERED: LIDOCAINE 1% INJ 10MG/ML (20 ML MDV) ONE (09:32)
[2019-02-27] MEDS ORDERED: MIDAZOLAM 2 MG/2 ML VIAL ONE (09:32)
[2019-02-27] MEDS ORDERED: PROPOFOL 10 MG/ML 20 ML VIAL IV ONE (09:32)
[2019-02-27] MEDS ORDERED: fentaNYL (PF) 50 MCG/ML 2 ML AMP ONE (09:32)
[2019-02-27] MEDS ORDERED: KETOROLAC 30 MG/ML 1 ML VIAL IVP PRN (09:35)
[2019-02-27] MEDS ORDERED: IBUPROFEN 600 MG TAB PO PRN (09:35)
[2019-02-27] MEDS ORDERED: SIMETHICONE 80 MG CHEWABLE PO PRN (09:35)
[2019-02-27] MEDS ORDERED: METOCLOPRAMIDE 5 MG/ML 2 ML VIAL IVP PRN (09:35)
[2019-02-27] MEDS ORDERED: diphenhydrAMINE 50 MG/ML 1 ML VIAL IVP PRN (09:35)
[2019-02-27] MEDS ORDERED: ONDANSETRON 4 MG/2 ML VIAL IVP PRN (09:35)
[2019-02-27] MEDS ORDERED: LACTATED RINGERS 1,000 ML IV SCH (09:45)
--- NOTE | 2019-02-27 10:09 | P.OP ---
Date of Procedure: 02/27/19 Preoperative Diagnosis: #1. Menorrhagia #2. History of stroke Postoperative Diagnosis: Same Procedure(s) Performed: #1. Diagnostic hysteroscopy #2. Dilation and curettage #3. NovaSure endometrial ablation Anesthesia: other (Gen. by face mask) Surgeon: French Eaton Estimated Blood Loss (ml): 5 IV fluids (ml): 400 Urine output (ml): 75 Pathology: other (Endometrial curettings) Condition: stable Disposition: PACU Operative Findings: pelvic examination demonstrated a roughly 4-5 week midplane mobile normal shaped uterus with normal adnexa bilaterally. Intraoperatively, the uterus sounded to 8 cm while the cervical length was approximately 3 cm. Hysteroscopic Khoa, the bilateral tubal ostial regions were seen and no defects were noted. D&C produced minimal tissue. The settings for the NovaSure tool were a length of 5.0 cm, a width of 2.5 cm for a total power of 69 W. The total run time was 39 seconds after which time the base unit read "procedure complete." The postprocedural result appeared to be good though there was some pinkish tissue still apparent at the fundus. The patient is not a good candidate for a vaginal approach for hysterectomy should it become necessary. Description of Procedure: The patient was prepped and draped in usual fashion after general endotracheal anesthesia was administered by the anesthesiologist. A weighted speculum was placed and the bladder draining approximately 75 mL of clear geraldine urine. Anterior lip of the cervix was grasped with a single-tooth tenaculum and uterus sounded to 8 cm with a cervical length of approximate 3 cm as noted above. Serial dilation was carried out to admit the diagnostic hysteroscope was placed in the fundus. The bilateral tubal ostial regions were seen and there was no apparent pathology. The cavity was fairly narrow. After adequate hysteroscopy been performed, the scope was set aside and a small sharp curette introduced into the cavity where the endometrium was thoroughly and circumferentially curetted onto a Telfa placed in the vagina. A small amount of tissue was returned. The NovaSure tool was placed to the fundus of the uterus, opened, and seated well. The settings are as noted above with a length of 5.0 cm, a width of 2.5 cm for total power of 69 W. The cavity check was attempted and passed without difficulty and the tool was enabled. The 2 was engaged and after a total run time of 39 seconds, the base unit read "procedure complete." The 2 was removed and set aside scope replaced. There appeared to be an excellent burn through the majority of the cavity though the fundus appeared to have some pink left where it is possible the array did not touch. All instrumentation was then removed and estimated blood loss was 5 mL or less. There are no complications. All sponge, instrument, and needle counts were correct. The patient tolerated the procedure well and proceeded to the recovery room in stable condition.
[2019-02-27 10:20] VITALS: TEMP 98.9
[2019-02-27 10:29] VITALS: RESP 16
[2019-02-27] MEDS: HYDROmorphone 0.5 MG/0.5 ML SYRINGE IVP PRN ×2 (10:38→10:44)
[2019-02-27 11:05] VITALS: PULSE 82
[2019-02-27 11:21] VITALS: BP 135/92
== END 2019-02-27 11:39 | disposition home or self-care (01) ==
LOC: OR 07:48
PROVIDERS: ATTEND Obstetrics & Gynecology
DX: N92.0 Excessive and frequent menstruation with regular cycle (principal); N88.2 Stricture and stenosis of cervix uteri; I48.91 Unspecified atrial fibrillation; E28.2 Polycystic ovarian syndrome; Z98.890 Other specified postprocedural states; K21.9 Gastro-esophageal reflux disease without esophagitis; Z79.02 Long term (current) use of antithrombotics/antiplatelets; Z79.01 Long term (current) use of anticoagulants; Z79.899 Other long term (current) drug therapy; Z88.5 Allergy status to narcotic agent; Z86.73 Personal history of transient ischemic attack (TIA), and cerebral infarction without residual deficits; Z87.891 Personal history of nicotine dependence; Z79.51 Long term (current) use of inhaled steroids
CPT/HCPCS: 81025; 88305; 58563; J2250; J1100; J2405; J2001; J3010; J2704; J1170

== ENCOUNTER → 2019-05-07 | Outpatient (CLI) | payer BC | END | disposition home or self-care (01) | LOC: LABWHC1 10:48 | PROVIDERS: ATTEND Ophthalmology | DX: M31.6 Other giant cell arteritis (principal) | CPT/HCPCS: 36415; 85652; 86140 ==

== ENCOUNTER → 2019-07-25 | Outpatient (CLI) | payer BC ==
--- NOTE | 2019-07-26 08:32 | MM ---
Reason for exam: additional evaluation requested from prior study. Last mammogram was performed 8 months ago. History: Patient has history of high-risk lesion on a previous biopsy at age 41 and is nulliparous. Family history of breast cancer in maternal aunt at age 60. High risk MG pre op needle loc RT of the right breast, July 01, 2017. Benign US biopsy breast VAD RT of the right breast, June 06, 2017. Excisional biopsy of the left breast, 2011. Benign excisional biopsy of the left breast, 2011. Benign excisional biopsy of the left breast, 2004. Took hormonal contraceptives for 25 years beginning at age 18. Physical Findings: Nurse Summary: 0.5cm nodule in the left breast at 6 o'clock, 1cm nodule in the left breast at 8 o'clock (nurse TM). MG 3D Diag Mammo W/Cad PETER Bilateral CC and MLO view(s) were taken. Prior study comparison: November 23, 2018, right breast MG 3d diag mammo w/cad RT. May 22, 2018, bilateral MG 3d diag mammo w/cad PETER. The breast tissue is heterogeneously dense. This may lower the sensitivity of mammography. Finding #1: Architectural distortion in the right breast consistent with known excisional changes. Finding #2: There are typically benign round calcifications in both breasts. Previous mammotome biopsy in the right breast. There is no discrete abnormality. Decreased size left breast redemonstrated. Left axillary clips prominent but suspected benign lymph nodes. These results were verbally communicated with the patient and result sheet given to the patient on 07/25/19. ASSESSMENT: Incomplete: need additional imaging evaluation, BI-RAD 0 RECOMMENDATION: Ultrasound of the left breast. (palpables by nurse)
--- NOTE | 2019-07-26 08:34 | USB ---
Reason for exam: additional evaluation requested from abnormal screening. History: Patient has history of high-risk lesion on a previous biopsy at age 41 and is nulliparous. Family history of breast cancer in maternal aunt at age 60. High risk MG pre op needle loc RT of the right breast, July 01, 2017. Benign US biopsy breast VAD RT of the right breast, June 06, 2017. Excisional biopsy of the left breast, 2011. Benign excisional biopsy of the left breast, 2011. Benign excisional biopsy of the left breast, 2004. Took hormonal contraceptives for 25 years beginning at age 18. US Breast Limited LT Left limited breast ultrasound including focal area of concern, retroareolar and axilla demonstrates a 0.6 x 0.3 x 0.5cm round, cystic lesion at 6 o'clock and a 0.5 x 0.4 x 0.5cm round, cystic lesion at 9 o'clock. Tiny simple cysts. These results were verbally communicated with the patient and result sheet given to the patient on 07/25/19. ASSESSMENT: Benign, BI-RAD 2 RECOMMENDATION: Routine screening mammogram of both breasts in 1 year.
== END | disposition home or self-care (01) ==
LOC: RADMAMWWP 12:57
PROVIDERS: ATTEND Surgery
DX: R92.8 Other abnormal and inconclusive findings on diagnostic imaging of breast (principal)
CPT/HCPCS: 77062; 77066

== ENCOUNTER → 2020-11-13 | Outpatient (CLI) | payer BC ==
--- NOTE | 2020-11-14 12:00 | MM ---
Reason for exam: screening (asymptomatic). Last mammogram was performed 1 year and 4 months ago. History: Patient has history of high-risk lesion on a previous biopsy at age 41 and is nulliparous. Family history of breast cancer in maternal aunt at age 60. High risk MG pre op needle loc RT of the right breast, July 01, 2017. Benign US biopsy breast VAD RT of the right breast, June 06, 2017. Excisional biopsy of the left breast, 2011. Benign excisional biopsy of the left breast, 2011. Benign excisional biopsy of the left breast, 2004. Took hormonal contraceptives for 25 years beginning at age 18. Physical Findings: A clinical breast exam by your physician is recommended on an annual basis and results should be correlated with mammographic findings. MG 3D Screening Mammo W/Cad Bilateral CC and MLO view(s) were taken. Prior study comparison: July 25, 2019, bilateral MG 3d diag mammo w/cad PETER. November 23, 2018, right breast MG 3d diag mammo w/cad RT. The breast tissue is heterogeneously dense. This may lower the sensitivity of mammography. Finding #1: Architectural distortion in the upper outer quadrant of the right breast. Finding #2: There are typically benign calcifications in both breasts. Previous mammotome biopsy in the right breast. ASSESSMENT: Incomplete: need additional imaging evaluation, BI-RAD 0 RECOMMENDATION: Special view mammogram of the right breast. If lesion persists on supplemental views, image directed ultrasound is recommended. [facility] will attempt to contact patient to return for supplemental views and ultrasound if indicated.
== END | disposition home or self-care (01) ==
LOC: RADMAMWWP 09:30
PROVIDERS: ATTEND Obstetrics & Gynecology
DX: Z12.31 Encounter for screening mammogram for malignant neoplasm of breast (principal); Z80.3 Family history of malignant neoplasm of breast
CPT/HCPCS: 77063; 77067

== ENCOUNTER → 2020-11-19 | Outpatient (CLI) | payer BC ==
--- NOTE | 2020-11-19 09:40 | MM ---
Reason for exam: additional evaluation requested from abnormal screening. Last mammogram was performed less than 1 month ago. History: Patient has history of high-risk lesion on a previous biopsy at age 41 and is nulliparous. Family history of breast cancer in maternal aunt at age 60. High risk MG pre op needle loc RT of the right breast, July 01, 2017. Benign US biopsy breast VAD RT of the right breast, June 06, 2017. Excisional biopsy of the left breast, 2011. Benign excisional biopsy of the left breast, 2011. Benign excisional biopsy of the left breast, 2004. Took hormonal contraceptives for 25 years beginning at age 18. Physical Findings: Nurse did not find any significant physical abnormalities on exam. MG 3D Work Up W/Cad RT Spot compression CC, spot compression MLO, and LM view(s) were taken of the right breast. Prior study comparison: November 13, 2020, bilateral MG 3d screening mammo w/cad. July 25, 2019, bilateral MG 3d diag mammo w/cad [facility]. July 25, 2019, left breast US breast limited LT. November 23, 2018, right breast MG 3d diag mammo w/cad RT. May 22, 2018, bilateral MG 3d diag mammo w/cad [facility]. The breast tissue is heterogeneously dense. This may lower the sensitivity of mammography. Previous mammotome biopsy in the right breast. Right upper outer quadrant distortion becomes less defined on spot 3D likely post excision scar, 6 month follow up recommended. These results were verbally communicated with the patient and result sheet given to the patient on 11/19/20. ASSESSMENT: Probably benign, BI-RAD 3 RECOMMENDATION: Follow-up diagnostic mammogram of the right breast in 6 months.
== END | disposition home or self-care (01) ==
LOC: RADMAMWWP 08:19
PROVIDERS: ATTEND Obstetrics & Gynecology
DX: R92.8 Other abnormal and inconclusive findings on diagnostic imaging of breast (principal); Z80.3 Family history of malignant neoplasm of breast; Z79.3 Long term (current) use of hormonal contraceptives
CPT/HCPCS: 77061; 77065

== ENCOUNTER → 2021-05-07 | Outpatient (CLI) | payer BC ==
--- NOTE | 2021-05-07 15:19 | CONS ---
CONSULTATION DATE OF SERVICE: 05/07/2021 45-year-old lady has [facility] for possible obstructive sleep apnea-hypopnea syndrome. HISTORY OF PRESENT ILLNESS SLEEP-WAKE EVALUATION: SLEEP SCHEDULE: Patient usual sleep schedule on weekdays from midnight/12:30 am until 6:30/7 am and on weekend until 9:30 to 10:30 am. FALLING ASLEEP: Usually no problems with falling asleep, although she has TV set in bedroom. DURING SLEEP: She usually sleeps on the side position. She has loud snoring according to her . She wakes up several times from sleep with one episode of nocturia. Positive history of grinding teeth, dry mouth, heartburn, occasional restless leg symptoms, sweating. DURING THE DAY/SLEEP WAKE EVALUATION: In the morning, the patient wakes up tired. Has difficulties paying attention. Has problems with memory, concentration, irritability, depression. [place] Sleepiness Scale significantly increased to 13. She may take one nap in the evening hours. No history of hypnagogic hallucinations, sleep paralysis or cataplexy. PAST MEDICAL HISTORY: Positive for ischemic stroke in 2019 with double vision, changing of the speech, condition improved but she still has some residual deficit, history of atrial fibrillation, PVCs, hyperlipidemia, migraine, acid reflux, some episodes of urinary incontinence as a reaction on laughing. PAST SURGICAL HISTORY: Right breast biopsies and duct removal, LASIK surgery. PFO closure, some mass removed from left arm pit. MEDICATIONS: Cymbalta 60 mg once a day, Inderal long acting 80 mg once a day, Xarelto 20 mg once a day. Lipitor 40 mg once a day. Singulair 10 mg once a day. Aspirin 81 mg once a day. SOCIAL HISTORY: Negative for smoking. Alcohol consumption occasional. FAMILY HISTORY: Hypertension, heart problems, stroke, snoring, cancer, diabetes. REVIEW OF SYSTEMS: Awakenings from sleep, snoring, sleepiness during the day. PHYSICAL EXAMINATION: GENERAL: lady without distress. BP 110/77, HR 64, height 5 feet 8-1/4 inches, weight 231.8 pounds, body mass index 34.9, temperature 97.7, oxygen saturation at room air 97%. Oropharynx: Extremely low position of soft palate, Mallampati 4. Neck is wide 16 inches in circumference. NECK: Supple, no JVD. Thyroid is not palpable. LUNGS: Clear to percussion and to auscultation. Good air exchange. No wheezing or rhonchi. HEART: S1, S2 regular. No murmurs, gallops, or rubs. ABDOMEN: Soft and nontender. Bowel sounds are present. No organomegaly appreciated. EXTREMITIES: No clubbing or cyanosis. LOGISTICS PLANNER: Awake, alert, and oriented X3. Cranial nerves 2 to 7 intact. There is no fasciculation or atrophy. noted. No focal deficits observed. IMPRESSION: 1. Loud snoring, awakenings from sleep with nocturia, extremely low position of soft palate, Mallampati 4, wide neck, 16 inches in circumference; obstructive sleep apnea-hypopnea syndrome. 2. Obesity; body mass index 34.9. 3. History of atrial fibrillation. 4. Premature ventricular contractions. 5. Status post ischemic stroke. 6. Status post closing PFO. 7. Migraines. 8. History of RLS symptoms. 9. Acid reflux. 10.Some residual deficit after the stroke related to vision. 11.Past history of urinary incontinence in reaction on laughing. PLAN: 1. Polysomnography for evaluation of patient's breathing during sleep. 2. CPAP/BiPAP titration if sleep study confirms obstructive sleep apnea-hypopnea syndrome. 3. Preferable position during sleep on the side. 4. No driving if patient feels any sleepiness. 5. I will see patient for follow up visit to explain results of testing and following plan. Thank you very much for referring this patient for consultation. Sincerely, Sandro Restrepo MD, PhD, FAASM Diplomat of [place] [employer] Sleep Medicine [employer] of [place] [employer] [facility] [place] MMODL / LILIN: [id number] /
== END ==
LOC: SLEEP 13:58
PROVIDERS: ATTEND Internal Medicine
DX: G47.33 Obstructive sleep apnea (adult) (pediatric) (principal); E66.9 Obesity, unspecified; I48.91 Unspecified atrial fibrillation; I49.3 Ventricular premature depolarization; Z68.34 Body mass index [BMI] 34.0-34.9, adult; Z86.73 Personal history of transient ischemic attack (TIA), and cerebral infarction without residual deficits; G43.909 Migraine, unspecified, not intractable, without status migrainosus; K21.9 Gastro-esophageal reflux disease without esophagitis; G25.81 Restless legs syndrome; Z98.890 Other specified postprocedural states; Z88.5 Allergy status to narcotic agent; Z87.448 Personal history of other diseases of urinary system
CPT/HCPCS: 99211

== ENCOUNTER → 2021-05-20 | Outpatient (CLI) | payer BC ==
--- NOTE | 2021-05-20 15:10 | MM ---
Reason for exam: follow-up at short interval from prior study. Last mammogram was performed 6 months ago. History: Patient has history of high-risk lesion on a previous biopsy at age 41 and is nulliparous. Family history of breast cancer in maternal aunt at age 60. High risk MG pre op needle loc RT of the right breast, July 01, 2017. Benign US biopsy breast VAD RT of the right breast, June 06, 2017. Excisional biopsy of the left breast, 2011. Benign excisional biopsy of the left breast, 2011. Benign excisional biopsy of the left breast, 2004. Took hormonal contraceptives for 25 years beginning at age 18. Physical Findings: A clinical breast exam by your physician is recommended on an annual basis and results should be correlated with mammographic findings. MG 3D Diag Mammo W/Cad RT CC and MLO view(s) were taken of the right breast. Prior study comparison: November 19, 2020, right breast MG 3d work up w/cad RT. November 13, 2020, bilateral MG 3d screening mammo w/cad. The breast tissue is heterogeneously dense. This may lower the sensitivity of mammography. No significant changes when compared with prior studies. ASSESSMENT: Benign, BI-RAD 2 RECOMMENDATION: Return to routine screening mammogram schedule for both breasts. Back on schedule.
== END | disposition home or self-care (01) ==
LOC: RADMAMWWP 14:35
PROVIDERS: ATTEND Obstetrics & Gynecology
DX: R92.8 Other abnormal and inconclusive findings on diagnostic imaging of breast (principal); Z80.3 Family history of malignant neoplasm of breast
CPT/HCPCS: 77061; 77065

== ENCOUNTER → 2022-05-31 | Outpatient (CLI) | payer BC ==
--- NOTE | 2022-06-01 08:32 | MM ---
Reason for Exam: Screening (asymptomatic). Last mammogram was performed 1 year(s) and 7 month(s) ago. Patient History: Menarche at age 14. Patient has no children. Perimenopausal. Hormonal Contraceptives for 25 years from age 18 until age 43. 2011, Benign Excisional Biopsy on the left side. 2004, Benign Excisional Biopsy on the left side. 2011, Excisional Biopsy on the Left side. 07/01/2017, High risk Core Biopsy on the right side. 06/06/2017, Benign Core Biopsy on the right side. Maternal aunt had breast cancer, age 60. Risk Values: Nancy 5 year model risk: 2.1%. NCI Lifetime model risk: 14.7%. Prior Study Comparison: 05/19/2017 Bilateral Screening Mammogram, [facility]. 05/27/2017 Right Diagnostic Mammogram, [facility]. 06/06/2017 Right Diagnostic Mammogram, [facility]. 11/21/2017 Right Diagnostic Mammogram, [facility]. 05/22/2018 Bilateral Diagnostic Mammogram, [facility]. 11/23/2018 Right Diagnostic Mammogram, [facility]. 07/25/2019 Bilateral Diagnostic Mammogram, [facility]. 11/13/2020 Bilateral Screening Mammogram, [facility]. 11/19/2020 Right Diagnostic Mammogram, [facility]. 05/20/2021 Right Diagnostic Mammogram, [facility] Tissue Density: The breast tissue is heterogeneously dense. This may lower the sensitivity of mammography. Findings: Analyzed By CAD. There is no suspicious group of microcalcifications or new suspicious mass in either breast. Overall Assessment: Benign, BI-RAD 2 Management: Screening Mammogram of both breasts in 1 year. A clinical breast exam by your physician is recommended on an annual basis and results should be correlated with mammographic findings. Electronically signed and approved by: Ankit Weinstein M.D. Radiologis
== END | disposition home or self-care (01) ==
LOC: RADMAMWWP 09:10
PROVIDERS: ATTEND Obstetrics & Gynecology
DX: Z12.31 Encounter for screening mammogram for malignant neoplasm of breast (principal); Z80.3 Family history of malignant neoplasm of breast
CPT/HCPCS: 77063; 77067

== ENCOUNTER → 2023-06-02 | Outpatient (CLI) | payer BC ==
--- NOTE | 2023-06-02 13:34 | MM ---
Reason for Exam: Screening (asymptomatic). Last screening mammogram was performed 12 month(s) ago. Patient History: Menarche at age 14. Patient has no children. Perimenopausal. Hormonal Contraceptives for 25 years from age 18 until age 43. 2011, Benign Excisional Biopsy on the left side. 2004, Benign Excisional Biopsy on the left side. 2011, Excisional Biopsy on the Left side. 07/01/2017, High risk Core Biopsy on the right side. 06/06/2017, Benign Core Biopsy on the right side. Maternal aunt had breast cancer, age 60. Risk Values: Nancy 5 year model risk: 1.9%. NCI Lifetime model risk: 14.4%. Prior Study Comparison: 11/19/2020 Right Diagnostic Mammogram, [facility]. 05/20/2021 Right Diagnostic Mammogram, [facility]. 05/31/2022 Bilateral MG 3D screening mammo w/cad, [facility]. Tissue Density: The breasts are heterogeneously dense, which may obscure small masses. Findings: Analyzed By CAD. Right breast biopsy clip. Right breast: There is no suspicious group of microcalcifications or new suspicious mass. Left breast: There is no suspicious group of microcalcifications or new suspicious mass. Overall Assessment: Negative, BI-RAD 1 Management: Screening Mammogram of both breasts in [address] [facility] will attempt to contact patient to return for supplemental views and ultrasound if indicated. Patient should continue monthly self-breast exams. A clinical breast exam by your physician is recommended on an annual basis. This exam should not preclude additional follow-up of suspicious palpable abnormalities. Note on Nancy scores and lifetime risk: 1. A Nancy score greater than 3% is considered moderate risk. If this is the case, consider specialist referral to assess eligibility for a risk reducing agent. 2. If overall lifetime risk for the development of breast cancer is 20% or higher, the patient may qualify for future screening with alternating mammogram and breast MRI. Electronically signed and approved by: Otis Schneider DO
== END | disposition home or self-care (01) ==
LOC: RADMAMWWP 12:30
PROVIDERS: ATTEND Obstetrics & Gynecology
DX: Z12.31 Encounter for screening mammogram for malignant neoplasm of breast (principal); Z80.3 Family history of malignant neoplasm of breast
CPT/HCPCS: 77063; 77067